=== PATIENT | female | born 1945 | race Caucasian/White ===

== ENCOUNTER 2017-03-12 17:40 | Inpatient (IN) | payer OTHER, MEDICARE ==
[~2017-03-12] VITALS: Ht 149.9 cm; Wt 77.4 kg
[2017-03-12 17:42] VITALS: BP 175/98; PULSE 98; RESP 17; TEMP 97.8; O2SAT 96
--- NOTE | 2017-03-12 18:04 | PD ---
HPI Chief Complaint: Psychiatric Symptoms Time Seen by Provider: 18:04 Travel History International Travel<30 days: No Contact w/Intl Traveler<30days: No Traveled to known affect area: No History of Present Illness HPI 71-year-old female with a history of depression presents to the emergency department for evaluation of suicidal ideations. Patient states that she has been exhibiting suicidal ideations for the past month intermittently. States that she has a history of depression and states "I have too much going on in my life." States she is having difficulty concentrating due to her anxiety. She is also complaining of right shoulder pain that has been ongoing for several years, denies any injury or trauma to the shoulder. 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 Denies any attempts to harm herself. Denies any ingestion of substances in an attempt to harm herself. Denies any alcohol or drug use. Denies any auditory or visual hallucinations. Denies any chest pain, shortness breath, abdominal pain, nausea , vomiting, diarrhea, numbness or tingling, weakness. No other complaints. PFSH Past Medical History ?: Not Social History Alcohol Use: No Tobacco Use: No Substance Use: No Allergies-Medications (Allergen,Severity, Reaction): Coded Allergies: No Known Allergies (Unverified , 03/12/17) Reported Meds & Prescriptions Reported Meds & Active Scripts Active Reported [Inhaler] Effexor (Venlafaxine HCl) 25 Mg Tab 25 Mg PO Q12H Review of Systems Except as stated in HPI: all other systems reviewed are Neg Physical Exam Narrative GENERAL: Well-nourished and well-developed pleasant patient in no acute distress who is nontoxic appearing. SKIN: Warm and dry. HEAD: Normocephalic and atraumatic. EYES: No injection, drainage, or hyphema noted. PERRLA. EOMI. ENT: No nasal drainage noted. Oropharynx is clear. NECK: Supple and the trachea is midline. CARDIOVASCULAR: Regular rate and rhythm. RESPIRATORY: Breath sounds are equal bilaterally with no accessory muscle use, wheezing, rhonchi, or crackles. GASTROINTESTINAL: Abdomen is soft, non-tender, and nondistended. MUSCULOSKELETAL: No obvious deformities, swelling, cyanosis, or ecchymosis is present throughout the upper and lower extremities. Patient has full range of motion without any signs of neurovascular compromise. NEUROLOGICAL: Awake, alert, and oriented. Normal speech and gait. Cranial nerves are grossly intact. Data Data Last Documented VS Vital Signs Date Time Temp Pulse Resp B/P Pulse Ox O2 Delivery O2 Flow Rate FiO2 03/12/17 17:42 97.8 98 17 175/98 96 Orders Complete Blood Count With Diff (03/12/17 18:03) Comprehensive Metabolic Panel (03/12/17 18:03) Urinalysis - C+S If Indicated (03/12/17 18:03) Psych Screen (03/12/17 18:03) Drug Screen, Random Urine (03/12/17 18:03) Alcohol (Ethanol) (03/12/17 18:03) Labs Laboratory Tests Test 03/12/17 18:07 White Blood Count 8.8 TH/MM3 Red Blood Count 4.61 MIL/MM3 Hemoglobin 14.1 GM/DL Hematocrit 42.3 % Mean Corpuscular Volume 91.7 FL Mean Corpuscular Hemoglobin 30.5 PG Mean Corpuscular Hemoglobin 33.2 % Concent Red Cell Distribution Width 13.1 % Platelet Count 276 TH/MM3 Mean Platelet Volume 7.8 FL Neutrophils (%) (Auto) 51.3 % Lymphocytes (%) (Auto) 39.3 % Monocytes (%) (Auto) 6.8 % Eosinophils (%) (Auto) 1.9 % Basophils (%) (Auto) 0.7 % Neutrophils # (Auto) 4.5 TH/MM3 Lymphocytes # (Auto) 3.5 TH/MM3 Monocytes # (Auto) 0.6 TH/MM3 Eosinophils # (Auto) 0.2 TH/MM3 Basophils # (Auto) 0.1 TH/MM3 CBC Comment DIFF FINAL Differential Comment Urine Color LIGHT-YELLOW Urine Turbidity CLEAR Urine pH 6.0 Urine Specific [place] 1.005 Urine Protein NEG mg/dL Urine Glucose (UA) NEG mg/dL Urine Ketones NEG mg/dL Urine Occult Blood NEG Urine Nitrite NEG Urine Bilirubin NEG Urine Urobilinogen LESS THAN 2.0 MG/DL Urine Leukocyte Esterase NEG Urine RBC LESS THAN 1 /hpf Urine WBC LESS THAN 1 /hpf Urine Squamous Epithelial <1 /hpf Cells Urine Bacteria OCC /hpf Microscopic Urinalysis Comment CULT NOT INDICATED Sodium Level 138 MEQ/L Potassium Level 3.5 MEQ/L Chloride Level 102 MEQ/L Carbon Dioxide Level 29.1 MEQ/L Anion Gap 7 MEQ/L Blood Urea Nitrogen 12 MG/DL Creatinine 0.96 MG/DL Estimat Glomerular Filtration 58 ML/MIN Rate Random Glucose 138 MG/DL Calcium Level 9.1 MG/DL Total Bilirubin 0.4 MG/DL Aspartate Amino Transf 17 U/L (AST/SGOT) Alanine Aminotransferase 22 U/L (ALT/SGPT) Alkaline Phosphatase 92 U/L Total Protein 7.9 GM/DL Albumin 3.9 GM/DL Urine Opiates Screen NEG Urine Barbiturates Screen NEG Urine Amphetamines Screen NEG Urine Benzodiazepines Screen NEG Urine Cocaine Screen NEG Urine Cannabinoids Screen NEG Ethyl Alcohol Level LESS THAN 3 MG/DL MDM Medical Decision Making Medical Screen Exam Complete: Yes Emergency Medical Condition: Yes Differential Diagnosis Differential: Depression versus adjustment reaction versus anxiety versus PTSD versus psychosis NOS versus mood disorder NOS versus substance induced mood disorder versus ODD versus adjustment reaction versus schizophrenia versus bipolar disorder versus schizoaffective versus electrolyte abnormality versus dementia Narrative Course Patient presents voluntarily for psychiatric evaluation. Physical examination and vital signs are essentially unremarkable. Patient has no medical complaints to report. Psych screen has been ordered. Labs are unremarkable for any acute abnormalities. The patient is medically cleared for psychiatric evaluation and disposition. Diagnosis Primary Impression: Depression Qualified Code: F32.9 - Depression, unspecified depression type Melinad Barajas March 12, 2017 18:04
[2017-03-12] MEDS ORDERED: VENL25TA PO (18:14)
[2017-03-12] MEDS ORDERED: INHALER (18:14)
[2017-03-12 18:23] LABS: AUTOMATED NEUTROPHIL # 4.5 TH/MM3 (1.8-7.7); BASOPHIL # 0.1 TH/MM3 (0-0.2); BASOPHIL % 0.7 % (0.0-2.0); EOSINOPHIL # 0.2 TH/MM3 (0-0.4); EOSINOPHIL % 1.9 % (0.0-4.0); HEMATOCRIT 42.3 % (35.0-46.0); HEMO FLAGS DIFF FINAL; LYMPH % 39.3 % (9.0-44.0); LYMPHOCYTE # 3.5 TH/MM3 (1.0-4.8); MEAN CELL VOLUME 91.7 FL (80.0-100.0); MEAN CORPUSCULAR HEMOGLOBIN 30.5 PG (27.0-34.0); MEAN CORPUSCULAR HGB CONC 33.2 % (32.0-36.0); MONO % 6.8 % (0.0-8.0); NEUT % 51.3 % (16.0-70.0); PLATELET COUNT 276 TH/MM3 (150-450); RED BLOOD COUNT 4.61 MIL/MM3 (4.00-5.30); RED CELL DISTRIBUTION WIDTH 13.1 % (11.6-17.2); WHITE BLOOD COUNT 8.8 TH/MM3 (4.0-11.0)
[2017-03-12 18:32] LABS: AMPHETAMINE, URINE NEG (NEG); BARBITURATES, URINE NEG (NEG); COCAINE, URINE NEG (NEG)
[2017-03-12 18:34] LABS: BACTERIA, URINE OCC /hpf; BLOOD, URINE NEG (NEG); COMMENT (UR) CULT NOT INDICATED; CULTURE IF INDICATED CULT NOT INDICATED; GLUCOSE,URINE NEG (NEG); KETONE, URINE NEG (NEG); NITRITE,URINE NEG (NEG); SQUAMOUS EPITHELIAL CELL URINE <1 /hpf (0-5); URINE COLOR LIGHT-YELLOW (YELLW/STRAW)
[2017-03-12 18:44] LABS: ANION GAP 7 MEQ/L (5-15)
[2017-03-12 18:47] LABS: ALKALINE PHOSPHATASE 92 U/L (45-117); ALT (GPT) 22 U/L (10-53); AST (GOT) 17 U/L (15-37); BICARBONATE 29.1 MEQ/L (21.0-32.0); BLOOD UREA NITROGEN 12 MG/DL (7-18); CHLORIDE 102 MEQ/L (98-107); GLOMERULAR FILTRATION RATE 58 ML/MIN (>89); POTASSIUM 3.5 MEQ/L (3.5-5.1); SODIUM (NA) 138 MEQ/L (136-145); TOTAL BILIRUBIN ADULT 0.4 MG/DL (0.2-1.0)
[2017-03-12 21:24] VITALS: BP 158/95; PULSE 94; RESP 18; O2SAT 96
[2017-03-13 02:11] VITALS: BP 128/62; PULSE 78; RESP 19; O2SAT 96
[2017-03-13 06:00] VITALS: BP 158/85; PULSE 77; RESP 18; O2SAT 99
[2017-03-13 10:56] VITALS: BP 134/79; PULSE 86; RESP 18; TEMP 97.8; O2SAT 96
[2017-03-13] MEDS ORDERED: ALUMINUM/MAGNESIUM/SIMETH 30 ML CUP PO PRN (14:00)
[2017-03-13] MEDS ORDERED: LORazepam 1 MG TAB PO PRN (14:00)
[2017-03-13] MEDS ORDERED: LORazepam 2 MG/ML VIAL IM PRN ×2 (14:00)
[2017-03-13] MEDS ORDERED: MAGNESIUM HYDROXIDE SUSP 30 ML CUP PO PRN (14:00)
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
[2017-03-13 14:57] VITALS: BP 164/81; PULSE 75; RESP 18; TEMP 97.2; O2SAT 99
[2017-03-13] MEDS: VENLAFAXINE HCL XR 75 MG CAP PO SCH (16:00)
[2017-03-13 16:27] VITALS: BP 141/85; PULSE 86; RESP 18; TEMP 97.4; O2SAT 96
--- NOTE | 2017-03-13 18:36 | PD.CONS ---
[facility] team Reason for Consult Medical management - evaluate for post menopausal hormone changes leading to depression. Primary Care Physician Non-Staff Diagnoses: History of Present Illness Patient is a pleasant 71-year-old female with primary history of depression, anxiety who came in to the hospital for evaluation of suicidal ideation. As per review of record, patient states that she has been exhibiting suicidal ideations for the past month intermittently. Stating "I have too much going on in my life". States she is having difficulty concentrating due to her anxiety. She is now admitted to inpatient psychiatry unit for further evaluation. Consulted for medical management. Patient seen and examined today. Reports she has no prior medical history except for psychiatric history. States she's been following with her primary care doctor and usually gets lab draws. Denies any history of hypertension, hypothyroidism, diabetes, strokes. Reports she has headache on and off and starting again, starts from the back of her head moving towards foot of the head especially increased when she is very anxious. Otherwise, denies SOB/ dyspnea. Denies chest pain, palpitations, headaches, dizziness. Denies fevers, chills, n/v/d. Denies hematuria, dysuria. Review of Systems Except as stated in HPI: all other systems reviewed are Neg Past Family Social History Allergies: Coded Allergies: No Known Allergies (Unverified , 03/12/17) Past Medical History Bipolar disorder Anxiety Depression Seasonal allergies Undiagnosed COPD Past Surgical History Bilateral carpal tunnel surgery Reported Medications Reported Meds & Active Scripts Active Reported [Inhaler] Effexor (Venlafaxine HCl) 25 Mg Tab 25 Mg PO Q12H Active Ordered Medications Current Medications Medications (Trade) Dose Ordered Sig/Tere Route Start Time Stop Time Status Last Admin (Ativan) 0.5 mg Q12H PRN PO 03/13/17 14:00 (Ativan Inj) 0.5 mg Q12H PRN IM 03/13/17 14:00 (Tylenol) 650 mg Q4H PRN PO 03/13/17 14:00 (Milk Of Magnesia Liq) 30 ml DAILY PRN PO 03/13/17 14:00 (Mag-Al Plus Susp Liq) 30 ml Q6H PRN PO 03/13/17 14:00 (Desyrel) 50 mg HS PRN PO 03/13/17 14:00 (Effexor Xr) 75 mg DAILY PO 03/13/17 15:00 03/13/17 16:00 Family History Mother of uterine cancer Sister of brain cancer Another Sister of drug overdose Father had heart problems Social History Lives with Denies alcohol use Denies illicit drug use Former smoker, 12 years 1 pack per day quit several years ago. Physical Exam Vital Signs Vital Signs Date Time Temp Pulse Resp B/P Pulse Ox O2 Delivery O2 Flow Rate FiO2 03/13/17 16:27 97.4 86 18 141/85 96 03/13/17 14:57 97.2 75 18 164/81 99 Room Air 03/13/17 10:56 97.8 86 18 134/79 96 Room Air 03/13/17 06:00 77 18 158/85 99 Room Air 03/13/17 02:11 78 19 128/62 96 Room Air 03/12/17 21:24 94 18 158/95 96 Room Air Physical Exam GENERAL: This is an obese, well-developed patient, in no apparent distress. SKIN: Warm and dry. HEAD: Normocephalic. No temporal or scalp tenderness. EYES: Pupils equal round and reactive. No scleral icterus. No injection or drainage. ENT: Nose without bleeding. Throat without erythema. Uvula midline. Airway patent. NECK: Trachea midline. No JVD or lymphadenopathy. Supple, nontender, no meningeal signs. CARDIOVASCULAR: Regular rate and rhythm without murmurs, gallops, or rubs. RESPIRATORY: Clear to auscultation. Breath sounds equal bilaterally. No wheezes , rales, or rhonchi. GASTROINTESTINAL: Abdomen soft, non-tender, nondistended. Bowel sounds active 4 MUSCULOSKELETAL: Extremities without clubbing, cyanosis, or edema. NEUROLOGICAL: Awake and alert. Oriented to self, place, time. Motor and sensory grossly within normal limits. Pressured speech. Result Diagram: 03/12/17180603/12/171806 Assessment and Plan Problem List: (1) Depression ICD Code: F32.9 Status: Acute Assessment and Plan Patient is a pleasant 71-year-old female with primary history of depression, anxiety who came in to the hospital for evaluation of suicidal ideation. As per review of record, patient states that she has been exhibiting suicidal ideations for the past month intermittently. Stating "I have too much going on in my life". States she is having difficulty concentrating due to her anxiety. She is now admitted to inpatient psychiatry unit for further evaluation. Consulted for medical management. Depression, suicidal ideation - managed by psychiatry team Headaches, tension-type - Tylenol when necessary Postmenopausal depression - Check FSH - Check CMP, TSH, vitamin D levels Elevated BP without diagnosis of high blood pressure - Intermittent BP elevation possibly due to anxiety - Monitor BP trend Thank you for this consultation. We will follow patient with you. Discussed Condition With Patient, nursing Problem Qualifiers (1) Depression: Qualified Code: F32.9 - Depression, unspecified depression type Clint Arizmendi March 13, 2017 18:36 Allison Ayala MD March 13, 2017 22:04
[2017-03-13] MEDS: traZODone HCL 50 MG TAB PO PRN (21:17)
[2017-03-13] MEDS: ACETAMINOPHEN 325 MG TAB PO PRN (21:19)
[2017-03-13] MEDS: LORazepam 0.5 MG TAB PO PRN (23:19)
[2017-03-14 06:08] VITALS: BP 136/70; PULSE 101; RESP 16; TEMP 99
[2017-03-14 07:20] LABS: AUTOMATED NEUTROPHIL # 2.5 TH/MM3 (1.8-7.7); BASOPHIL % 0.7 % (0.0-2.0); EOSINOPHIL # 0.2 TH/MM3 (0-0.4); EOSINOPHIL % 2.7 % (0.0-4.0); HEMATOCRIT 42.3 % (35.0-46.0); HEMO FLAGS DIFF FINAL; LYMPH % 49.7 % (9.0-44.0); LYMPHOCYTE # 3.2 TH/MM3 (1.0-4.8); MEAN CELL VOLUME 91.7 FL (80.0-100.0); MEAN CORPUSCULAR HEMOGLOBIN 30.1 PG (27.0-34.0); MEAN CORPUSCULAR HGB CONC 32.9 % (32.0-36.0); MONO % 8.2 % (0.0-8.0); NEUT % 38.7 % (16.0-70.0); PLATELET COUNT 266 TH/MM3 (150-450); RED BLOOD COUNT 4.62 MIL/MM3 (4.00-5.30); WHITE BLOOD COUNT 6.5 TH/MM3 (4.0-11.0)
[2017-03-14 08:24] LABS: ALKALINE PHOSPHATASE 83 U/L (45-117); ALT (GPT) 18 U/L (10-53); ANION GAP 11 MEQ/L (5-15); AST (GOT) 16 U/L (15-37); BICARBONATE 27.9 MEQ/L (21.0-32.0); BLOOD UREA NITROGEN 14 MG/DL (7-18); CHLORIDE 105 MEQ/L (98-107); FOLLICLE STIMULATING HORMONE 33.3 mIU/mL; GLOMERULAR FILTRATION RATE 72 ML/MIN (>89); POTASSIUM 3.7 MEQ/L (3.5-5.1); SODIUM (NA) 144 MEQ/L (136-145); TOTAL BILIRUBIN ADULT 0.5 MG/DL (0.2-1.0)
[2017-03-14] MEDS: VENLAFAXINE HCL XR 75 MG CAP PO SCH (08:47)
[2017-03-14] MEDS ORDERED: ALBUTEROL SULFATE 90 MCG/ACT HFA 8 GM INHALER INH PRN (09:00)
[2017-03-14 12:29] LABS: HEMOGLOBIN A1a 1.4 %; HEMOGLOBIN A1b 1.7 %; HEMOGLOBIN Ao 85.7 %; HEMOGLOBIN P3 3.7 %
[2017-03-14] MEDS: CHOLECALCIFEROL (VIT D3) 1000 UNIT TAB PO SCH (13:40)
--- NOTE | 2017-03-14 14:22 | HHI.PR ---
Subjective Remarks Follow-up visit depression, anxiety, headache, elevated BP, low vitamin D. Patient seen and examined today. Reports she is doing well. States she gets along with other people. Discussed with patient results of labs. Denies pain and discomfort. Denies SOB/ dyspnea. Denies chest pain, palpitations, headaches, dizziness. Denies fevers, chills, n/v/d. Denies hematuria, dysuria. Objective Vitals Vital Signs Date Time Temp Pulse Resp B/P Pulse Ox O2 Delivery O2 Flow Rate FiO2 03/14/17 06:08 99.0 101 16 136/70 03/13/17 16:27 97.4 86 18 141/85 96 03/13/17 14:57 97.2 75 18 164/81 99 Room Air Result Diagram: 03/14/1761403/14/17614 Objective Remarks GENERAL: This is an obese, well-developed patient, in no apparent distress. SKIN: Warm and dry. HEAD: Normocephalic. No temporal or scalp tenderness. EYES: Pupils equal round and reactive. No scleral icterus. No injection or drainage. ENT: Nose without bleeding. Throat without erythema. Uvula midline. Airway patent. NECK: Trachea midline. No JVD or lymphadenopathy. Supple, nontender, no meningeal signs. CARDIOVASCULAR: Regular rate and rhythm without murmurs, gallops, or rubs. RESPIRATORY: Clear to auscultation. Breath sounds equal bilaterally. No wheezes , rales, or rhonchi. GASTROINTESTINAL: Abdomen soft, non-tender, nondistended. Bowel sounds active 4 MUSCULOSKELETAL: Extremities without clubbing, cyanosis, or edema. NEUROLOGICAL: Awake and alert. Oriented to self, place, time. Motor and sensory grossly within normal limits. Normal speech. A/P Problem List: (1) Depression ICD Code: F32.9 Status: Acute Assessment and Plan Patient is a pleasant 71-year-old female with primary history of depression, anxiety who came in to the hospital for evaluation of suicidal ideation. As per review of record, patient states that she has been exhibiting suicidal ideations for the past month intermittently. Stating "I have too much going on in my life". States she is having difficulty concentrating due to her anxiety. She is now admitted to inpatient psychiatry unit for further evaluation. Consulted for medical management. Depression, suicidal ideation - managed by psychiatry team Headaches, tension-type - Tylenol when necessary - Improved Postmenopausal depression - FSH 33.3 - CMP within normal, low vitamin D levels at 18.4 - Vitamin D insufficiency will start vitamin D supplementation D3 1000 daily - Discuss with patient is to follow-up with PCP and check in 3 months also may need a bone scan as an outpatient to calculate her risk for osteoporosis - Patient states last menstrual period has been 19 years agoshe was in her 50s, episodes of hot flashes but she is over with now. Does not recall that she has been depressed in the beginning of her postmenopausal process by throughout the years post menopause she developed feeling depressed. May benefit with continued to use of antidepressants. Elevated BP without diagnosis of high blood pressure - Intermittent BP elevation possibly due to anxiety - Monitor BP trend - BP trend improved if anxiety is treated well. - Will not start any BP meds for now Stable from Hospitalist standpoint. We will sign off. Reconsult as needed. Written by Clint Sheikh, acting as scribe for Dr. Ayala on 03/14/17 at 14:28. This note was transcribed by louann WALKER. I, Dr. Allison Ayala personally performed the history, physical exam, and medical decision making; and confirmed the accuracy of the information in the transcribed note. Authenticated by Dr. Allison Ayala on 03/14/17 at 14:28. Problem Qualifiers (1) Depression: Qualified Code: F32.9 - Depression, unspecified depression type Clint Arizmendi March 14, 2017 14:22 Allison Ayala MD March 14, 2017 14:49
--- NOTE | 2017-03-14 17:18 | HHI.PYPN ---
Subjective Remarks Continues to be very depressed. Tearful. Anxious. Willing to try antidepressant medication. This physician recommended Prozac. Review of Systems ROS Limitations: Clinical Condition Objective Alert: Yes [place]: Person, Place, Date, Situation Mood: Depressed Affect: Restricted Memory Intact: Immediate, Recent, Remote Hallucinations: Other Delusions: No Delusion Type: Other Suicidal: Ideation Homicidal: Ideation Insight/Judgment Impaired Labs Test 03/14/17 06:15 White Blood Count 6.5 TH/MM3 Red Blood Count 4.62 MIL/MM3 Hemoglobin 13.9 GM/DL Hematocrit 42.3 % Mean Corpuscular Volume 91.7 FL Mean Corpuscular Hemoglobin 30.1 PG Mean Corpuscular Hemoglobin 32.9 % Concent Red Cell Distribution Width 13.0 % Platelet Count 266 TH/MM3 Mean Platelet Volume 8.1 FL Neutrophils (%) (Auto) 38.7 % Lymphocytes (%) (Auto) 49.7 % Monocytes (%) (Auto) 8.2 % Eosinophils (%) (Auto) 2.7 % Basophils (%) (Auto) 0.7 % Neutrophils # (Auto) 2.5 TH/MM3 Lymphocytes # (Auto) 3.2 TH/MM3 Monocytes # (Auto) 0.5 TH/MM3 Eosinophils # (Auto) 0.2 TH/MM3 Basophils # (Auto) 0.0 TH/MM3 CBC Comment DIFF FINAL Differential Comment Sodium Level 144 MEQ/L Potassium Level 3.7 MEQ/L Chloride Level 105 MEQ/L Carbon Dioxide Level 27.9 MEQ/L Anion Gap 11 MEQ/L Blood Urea Nitrogen 14 MG/DL Creatinine 0.79 MG/DL Estimat Glomerular Filtration 72 ML/MIN Rate Random Glucose 94 MG/DL Hemoglobin A1c 5.3 % Calcium Level 9.0 MG/DL Total Bilirubin 0.5 MG/DL Aspartate Amino Transf 16 U/L (AST/SGOT) Alanine Aminotransferase 18 U/L (ALT/SGPT) Alkaline Phosphatase 83 U/L Total Protein 7.3 GM/DL Albumin 3.6 GM/DL Vitamin B12 Level 567 PG/ML 25-Hydroxy Vitamin D Total 18.4 ng/ML Thyroid Stimulating Hormone 1.950 uIU/ML 3rd Gen Follicle Stimulating Hormone 33.3 mIU/mL Vitals/IOs Vital Signs Date Time Temp Pulse Resp B/P Pulse Ox O2 Delivery O2 Flow Rate FiO2 03/14/17 06:08 99.0 101 16 136/70 5/9/17 16:27 96 03/13/17 14:57 Room Air Assessment & Plan Problem List: (1) Severe major depression, single episode, without psychotic features ICD Code: F32.2 Assessment & Plan Estimated LOS: 7 days will start antidepressant therapy at bedtime. Justification for Cont. Inpt. Suicidal Deniz Hart MD March 14, 2017 17:18
[2017-03-14 17:21] VITALS: BP 129/91; PULSE 92; RESP 16; TEMP 97.8; O2SAT 94
[2017-03-14] MEDS: ACETAMINOPHEN 325 MG TAB PO PRN (17:57)
[2017-03-14 18:00] VITALS: BP 129/91; PULSE 92; RESP 16; TEMP 97.8; O2SAT 94
[2017-03-14] MEDS: LORazepam 0.5 MG TAB PO PRN (20:29)
[2017-03-14] MEDS: traZODone HCL 50 MG TAB PO PRN (20:29)
[2017-03-15 05:35] VITALS: BP 136/73; PULSE 75; RESP 18; TEMP 98.4; O2SAT 97
[2017-03-15] MEDS: FLUoxetine HCL 10 MG CAP PO SCH (08:34)
[2017-03-15] MEDS: CHOLECALCIFEROL (VIT D3) 1000 UNIT TAB PO SCH (08:34)
--- NOTE | 2017-03-15 13:59 | HHI.PYPN ---
Subjective Remarks Feeling better. Seeks discharge tomorrow. Review of Systems Except as stated in HPI: all other systems reviewed are Neg Objective Alert: Yes Clutier: Person, Place, Date, Situation Mood: Depressed Affect: Restricted Memory Intact: Immediate, Recent, Remote Hallucinations: Other Delusions: No Delusion Type: Other Suicidal: Ideation Homicidal: Ideation Insight/Judgment Improved Vitals/IOs Vital Signs Date Time Temp Pulse Resp B/P Pulse Ox O2 Delivery O2 Flow Rate FiO2 03/15/17 05:35 98.4 75 18 136/73 97 03/13/17 14:57 Room Air Assessment & Plan Problem List: (1) Severe major depression, single episode, without psychotic features ICD Code: F32.2 Assessment & Plan Estimated LOS: 1 days continue antidepressant. Justification for Cont. Inpt. Waiting for stabilization on Prozac Deniz Hart MD March 15, 2017 13:59
[2017-03-15 20:05] VITALS: BP 156/107; PULSE 85; RESP 17; TEMP 98.1; O2SAT 99
[2017-03-15] MEDS: ACETAMINOPHEN 325 MG TAB PO PRN (21:57)
[2017-03-16 05:30] VITALS: BP 116/69; PULSE 80; RESP 16; TEMP 98.3
[2017-03-16] MEDS: FLUoxetine HCL 10 MG CAP PO SCH (08:21)
[2017-03-16] MEDS: CHOLECALCIFEROL (VIT D3) 1000 UNIT TAB PO SCH (08:21)
[2017-03-16] MEDS: ACETAMINOPHEN 325 MG TAB PO PRN (08:33)
[2017-03-16] MEDS ORDERED: TRAZ50TA12 PO (15:43)
[2017-03-16] MEDS ORDERED: FLUO-1 PO (15:43)
--- NOTE | 2017-03-16 15:48 | HHI.DS ---
Psychiatry Discharge Summary Inpatient Psychiatric care?: Yes Advance Directive: No Reason Not Provided: Due to Patient Condition Mental Health AdvanceDirective: No Health Care Proxy: No Admission Admission Date March 13, 2017 at 13:54 Admission Diagnosis: (1) Severe major depression, single episode, without psychotic features ICD Code: F32.2 Brief History This is a 71-year-old female who presents voluntarily to the emergency department with a one-month history of depressive symptoms and current suicidal ideation with plan. Patient reports increasing symptoms of depression over the last 1-3 months, including depressed mood, anhedonia, diminished energy, feelings of guilt, repeated episodes of tearfulness, loss of energy, diminished self-esteem, social withdrawal, problems with concentration, sleep disturbance, etc. She attributes her increasing symptoms of depression to her current family and living situation. She lives with her and 2 grown sons in a small house. There is a lot of screaming and yelling that takes place in this home. Both sons have legal issues related to drug abuse. Both sons are not living independently or working consistently. The patient has grown markedly fatigued and upset with his situation and blames herself that her son's have had so much difficulty. She feels that her genetic predisposition to depression has been transferred to her sons and this is the reason they use drugs. Patient does have suicidal planning including driving off a bridge, overdosing, etc. Tobacco Use In Past 30 Days: No Tobacco Past 30 Days Alcohol Use: Never Hospital Course Patient showed good response to the milieu, counseling, and medication. Patient seen by me today with nurse Ileana. Chart reviewed. Patient alert oriented calm pleasant with euthymic mood. Today she is feeling much better. Denying suicidality homicidality voices or visions. States she started a conversation with her family is willing to be compliant with medication. Does have her own psychiatrist in the community. At this time patient along reach criteria for involuntary psychiatric hospitalization patient to be discharged today to [facility] with Rx for Prozac and trazodone. Results Blood Pressure 116 / 69 Vital Signs Date Time Temp Pulse Resp B/P Pulse Ox O2 Delivery O2 Flow Rate FiO2 03/16/17 05:30 98.3 80 16 116/69 03/15/17 20:05 99 03/13/17 14:57 Room Air Laboratory Tests Test 03/14/17 06:15 Lymphocytes (%) (Auto) 49.7 % (9.0-44.0) Monocytes (%) (Auto) 8.2 % (0.0-8.0) Estimat Glomerular Filtration 72 ML/MIN (>89) Rate 25-Hydroxy Vitamin D Total 18.4 ng/ML (30-100) Laboratory Results Test 03/14/17 06:15 Hemoglobin A1c 5.3 % (4.3-6.0) Summary of Procedures None done Pending results at discharge: No Medications # of Antipsychotic meds at D/C: 0 Approp Antipsych med options 1 - Minimum of three failed multiple trials of monotherapy. 2 - Documented plan to taper to monotherapy due to previous use of multiple meds OR cross-taper in progress at D/C. 3 - Documentation of augmentation of Clozapine. 4 - Justification other than those listed in allowable values 1-3, document here : Discharge Discharge Date: March 16, 2017 Discharge Diagnosis: (1) Severe major depression, single episode, without psychotic features Diagnosis: Principal ICD Code: F32.2 Mental Status Exam at Disch Laboratory Perez salomon built white female appears somewhat younger than stated age. She is normal active, patient is euthymic with good range intensity of her affect. Speech rate and rhythm are within normal limits and there are no formal thought disorders. No auditory or visual hallucinations no delusions noted. Insight and judgment is fair cognition grossly intact Pt Condition on Discharge: Stable Discharge Disposition: Discharge Home Discharge Instructions Diet Instructions: As Tolerated, No Restrictions Activities you can perform: Regular-No Restrictions Scheduled Appointment: follow-up private psychiatrist Dr. Cosby Discharge Time > 30 minutes Discharge/Advance Care Plan Health Problems: (1) Severe major depression, single episode, without psychotic features Goals to promote your health * To prevent worsening of your condition and complications * To maintain your health at the optimal level Directions to meet your goals Take your medications as prescribed Follow your dietary instruction Follow activity as directed Keep your appointments as scheduled Take your immunizations and boosters as scheduled If your symptoms worsen call your PCP, if no PCP go to Urgent Care Center or Emergency Room For 28/05 questions related to your inpatient stay or results of tests pending at discharge, please contact Dr. Elvin Baer at Smoking is Dangerous to Your Health. Avoid second hand smoking Elvin Baer MD March 16, 2017 15:48
== END 2017-03-16 17:40 | disposition home or self-care (01) | DRG 885 ==
LOC: NEPD 17:40 → NEDA 03-13 13:54 → H260 03-13 16:20
PROVIDERS: ADMIT Psychiatry & Neurology Psychiatry; ATTEND Psychiatry & Neurology Psychiatry
DX: F32.2 Major depressive disorder, single episode, severe without psychotic features (principal); G44.209 Tension-type headache, unspecified, not intractable; E66.9 Obesity, unspecified; Z68.34 Body mass index [BMI] 34.0-34.9, adult; R03.0 Elevated blood-pressure reading, without diagnosis of hypertension; Z78.0 Asymptomatic menopausal state; Z87.891 Personal history of nicotine dependence
CPT/HCPCS: 80053; 80307; 81001; 82306; 82607; 83001; 83036; 84443; 85025; 99284